=== PATIENT | female | born 1940 | race Two or more races ===

== ENCOUNTER 2017-01-23 14:50 | Emergency (ER) | payer MEDICARE, SELFPAY ==
[~2017-01-23] VITALS: Ht 160 cm; Wt 86.2 kg
[2017-01-23] MEDS ORDERED: PRAV40TA2 PO (15:02)
[2017-01-23] MEDS ORDERED: BENI40TA7 PO ×2 (15:02→17:03)
[2017-01-23] MEDS ORDERED: METF1000 PO (15:02)
[2017-01-23] MEDS ORDERED: HYDR12.55 PO (15:02)
[2017-01-23] MEDS ORDERED: KEFL500C7 PO (15:02)
[2017-01-23 16:03] LABS: BASO % 0.7 % (0.0-1.0); EOS # 0.1 K/mm3 (0.0-0.50); EOS % 1.6 % (0.0-3.0); LARGE UNSTAINED CELL # 0.1 K/mm3 (0.0-0.4); LARGE UNSTAINED CELL % 1.4 % (0.0-4.0); LYMPH # 1.7 K/mm3 (1.5-4.5); LYMPH % 28.4 % (24.0-44.0); MEAN CORPUSCULAR HEMOGLOBIN 29.8 pg (27.0-33.0); MEAN CORPUSCULAR HGB CONC 33.2 g/dl (32.0-36.5); MEAN CORPUSCULAR VOLUME 89.7 fl (80.0-96.0); MONO # 0.3 K/mm3 (0.0-0.8); MONO % 5.7 % (0.0-5.0); NEUTROPHILS # 3.6 K/mm3 (1.8-7.7); NEUTROPHILS % 62.1 % (36.0-66.0); PLATELET COUNT, AUTOMATED 167 k/mm3 (150-450); RED CELL DISTRIBUTION WIDTH 12.7 % (11.5-14.5); WHITE BLOOD COUNT 5.8 K/mm3 (4.0-10.0)
[2017-01-23 16:04] LABS: INR 0.93
[2017-01-23 16:16] LABS: ANION GAP 7 MEQ/L (8-16); BLOOD UREA NITROGEN 15 MG/DL (7-18); CALCIUM LEVEL 8.5 MG/DL (8.8-10.2); CARBON DIOXIDE LEVEL 27 MEQ/L (21-32); CHLORIDE LEVEL 107 MEQ/L (98-107); CREATININE FOR GFR 0.84 MG/DL (0.55-1.02); GLOMERULAR FILTRATION RATE > 60.0 (>39); GLUCOSE, FASTING 142 MG/DL (83-110); POTASSIUM SERUM 3.8 MEQ/L (3.5-5.1); SODIUM LEVEL 141 MEQ/L (136-145)
--- NOTE | 2017-01-23 16:27 | REP ---
Right lower extremity Duplex Doppler venous ultrasound: Real time compression and duplex Doppler interrogation of the right lower extremity deep venous system is performed. The right common femoral, superficial femoral and popliteal veins are fully compressible with transducer pressure and demonstrate normal spontaneous and phasic flow, without evidence of deep venous thrombosis. Impression: No evidence of deep venous thrombosis of the right lower extremity femoral popliteal venous system. Signed by Clyde Ceballos MD 01/23/2017 04:18 P
[2017-01-23] MEDS ORDERED: PRAV10TA PO (17:02)
[2017-01-23] MEDS ORDERED: METF-415 PO (17:03)
[2017-01-23 17:16] VITALS: BP 172/80
== END 2017-01-23 17:16 | disposition home or self-care (01) ==
LOC: M ED 15:46
DX: L03.115 Cellulitis of right lower limb (principal); E11.9 Type 2 diabetes mellitus without complications; I10 Essential (primary) hypertension; E78.00 Pure hypercholesterolemia, unspecified; Z79.899 Other long term (current) drug therapy; Z79.84 Long term (current) use of oral hypoglycemic drugs; Z79.2 Long term (current) use of antibiotics

== ENCOUNTER 2017-04-26 15:36 | Emergency (ER) | payer MEDICARE, OTHER, SELFPAY ==
[~2017-04-26] VITALS: Ht 160 cm; Wt 90.5 kg
[~2017-04-26 15:36] MED LIST changes: -CHLO125TA PO; -CORE12.5 PO; -LISI10TA4 PO
[2017-04-26 16:34] LABS: BASO % 0.6 % (0.0-1.0); EOS # 0.2 K/mm3 (0.0-0.50); LARGE UNSTAINED CELL # 0.2 K/mm3 (0.0-0.4); LARGE UNSTAINED CELL % 2.7 % (0.0-4.0); LYMPH # 2.7 K/mm3 (1.5-4.5); MEAN CORPUSCULAR HEMOGLOBIN 29.8 pg (27.0-33.0); MEAN CORPUSCULAR HGB CONC 33.8 g/dl (32.0-36.5); MEAN CORPUSCULAR VOLUME 88.3 fl (80.0-96.0); MONO # 0.4 K/mm3 (0.0-0.8); MONO % 6.6 % (0.0-5.0); NEUTROPHILS # 3.2 K/mm3 (1.8-7.7); NEUTROPHILS % 48.1 % (36.0-66.0); PLATELET COUNT, AUTOMATED 171 k/mm3 (150-450); RED CELL DISTRIBUTION WIDTH 12.9 % (11.5-14.5); WHITE BLOOD COUNT 6.5 K/mm3 (4.0-10.0)
[2017-04-26 16:47] LABS: ALBUMIN 3.9 GM/DL (3.2-5.2); ALBUMIN/GLOBULIN RATIO 0.95 (1.00-1.93); ALKALINE PHOSPHATASE 94 U/L (45-117); ALT/SGPT 24 U/L (12-78); ANION GAP 11 MEQ/L (8-16); AST/SGOT 18 U/L (15-37); BILIRUBIN,DIRECT 0.1 MG/DL (0.0-0.2); BILIRUBIN,TOTAL 0.5 MG/DL (0.2-1.0); BLOOD UREA NITROGEN 31 MG/DL (7-18); CALCIUM LEVEL 9.2 MG/DL (8.8-10.2); CARBON DIOXIDE LEVEL 27 MEQ/L (21-32); CHLORIDE LEVEL 103 MEQ/L (98-107); CREATININE FOR GFR 0.96 MG/DL (0.55-1.02); GLOMERULAR FILTRATION RATE > 60.0 (>39); GLUCOSE, FASTING 130 MG/DL (83-110); POTASSIUM SERUM 3.7 MEQ/L (3.5-5.1); SODIUM LEVEL 141 MEQ/L (136-145)
--- NOTE | 2017-04-26 16:47 | REP ---
Chest one-view HISTORY: Chest pain Comparison: None The lungs are clear. The cardiac silhouette is enlarged. The pulmonary vasculature is normal in appearance. Impression: Cardiomegaly. Signed by Rodriguez Valdez MD 04/26/2017 04:39 P
[2017-04-26] MEDS ORDERED: LISINOPRIL 10 MG TAB PO ONE (17:15)
[2017-04-26] MEDS ORDERED: CARVedilol 12.5 MG TAB PO ONE (17:15)
[2017-04-26] MEDS ORDERED: CHLORTHALIDONE 25 MG TAB PO ONE (17:15)
[2017-04-26] MEDS ORDERED: CHLORTHALIDONE 12.5MG PER 1/2 TABLET PO ONE (17:15)
[2017-04-26 17:24] VITALS: BP 187/89
[2017-04-26 20:12] VITALS: BP 146/69
[2017-04-26] MEDS ORDERED: CORE12.5 PO (20:28)
[2017-04-26] MEDS ORDERED: LISI10TA4 PO (20:28)
[2017-04-26] MEDS ORDERED: CHLO125TA PO (20:28)
--- NOTE | 2017-04-27 21:27 | ECGEPIP ---
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
--- NOTE | 2017-04-27 21:29 | ECGEPIP ---
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
== END 2017-04-26 21:30 | disposition home or self-care (01) ==
LOC: M ED 15:36
DX: I11.0 Hypertensive heart disease with heart failure (principal); E66.9 Obesity, unspecified; Z79.899 Other long term (current) drug therapy
CPT/HCPCS: 36415; 71010; 80048; 80053; 80061; 80076; 82550; 82553; 83036; 83880; 84439; 84443; 84484; 85025; 85027; 93005; 93041; 94760; 99285; G0463

== ENCOUNTER → 2017-04-26 | Outpatient (REF) | payer MEDICARE ==
[~2017-04-26] MED LIST: BENI40TA30 PO; CHLO125TA PO; CORE12.5 PO; HYDR12.55 PO; KEFL500C17 PO; LISI10TA4 PO; METF-415 PO; METF10004 PO; PRAV10TA4 PO; PRAV40TA2 PO
[2017-04-26 15:54] LABS: MEAN CORPUSCULAR HEMOGLOBIN 30.7 pg (27.0-33.0); MEAN CORPUSCULAR HGB CONC 34.5 g/dl (32.0-36.5); MEAN CORPUSCULAR VOLUME 88.8 fl (80.0-96.0); RED CELL DISTRIBUTION WIDTH 12.9 % (11.5-14.5); WHITE BLOOD COUNT 5.2 K/mm3 (4.0-10.0)
[2017-04-26 16:52] LABS: ALBUMIN 3.8 GM/DL (3.2-5.2); ALKALINE PHOSPHATASE 88 U/L (45-117); ALT/SGPT 24 U/L (12-78); ANION GAP 10 MEQ/L (8-16); AST/SGOT 17 U/L (15-37); BILIRUBIN,TOTAL 0.5 MG/DL (0.2-1.0); BLOOD UREA NITROGEN 31 MG/DL (7-18); CALCIUM LEVEL 9.1 MG/DL (8.8-10.2); CARBON DIOXIDE LEVEL 28 MEQ/L (21-32); CHLORIDE LEVEL 103 MEQ/L (98-107); CHOLESTEROL LEVEL 163 MG/DL (<200); FREE T4 1.04 NG/DL (0.76-1.46); GLOMERULAR FILTRATION RATE > 60.0 (>39); GLUCOSE, FASTING 118 MG/DL (83-110); SODIUM LEVEL 141 MEQ/L (136-145); TOTAL PROTEIN 7.6 GM/DL (6.4-8.2); TRIGLYCERIDES LEVEL 112 MG/DL (<150)
== END ==
LOC: M SFHCLERA 14:23
PROVIDERS: ATTEND Family Medicine
DX: I49.9 Cardiac arrhythmia, unspecified (principal); I89.0 Lymphedema, not elsewhere classified; R94.31 Abnormal electrocardiogram [ECG] [EKG]; E11.9 Type 2 diabetes mellitus without complications; E78.5 Hyperlipidemia, unspecified; I10 Essential (primary) hypertension; Z79.84 Long term (current) use of oral hypoglycemic drugs; Z79.899 Other long term (current) drug therapy
CPT/HCPCS: 80053; 80061; 83036; 84439; 84443; 84484; 85027; G0463

== ENCOUNTER → 2017-10-25 | Outpatient (REF) | payer MEDICARE, SELFPAY ==
[2017-10-25 18:29] LABS: ESTIMATED AVERAGE GLUCOSE 128 MG/DL (60-110); HEMOGLOBIN A1c 6.1 %
[2017-10-25 18:34] LABS: ANION GAP 6 MEQ/L (8-16); BLOOD UREA NITROGEN 30 MG/DL (7-18); CALCIUM LEVEL 9.4 MG/DL (8.8-10.2); CARBON DIOXIDE LEVEL 30 MEQ/L (21-32); CHLORIDE LEVEL 106 MEQ/L (98-107); CREATININE FOR GFR 0.96 MG/DL (0.55-1.30); GLOMERULAR FILTRATION RATE > 60.0 (>39); GLUCOSE, FASTING 133 MG/DL (70-100); NT-PRO BNP 1648 PG/ML (<450); POTASSIUM SERUM 4.3 MEQ/L (3.5-5.1); SODIUM LEVEL 142 MEQ/L (136-145)
[2017-10-25 18:55] LABS: CREATININE, URINE 57.8 MG/DL; MALB URINE SIEMENS 53.7 MG/L; MAU/CREAT RATIO 92.9 MCG/MG (0.0-30.0)
== END ==
LOC: M SFHCLERA 11:34
DX: E11.9 Type 2 diabetes mellitus without complications (principal); R60.0 Localized edema; I10 Essential (primary) hypertension
CPT/HCPCS: 83036

== ENCOUNTER → 2017-11-29 | Outpatient (REF) | payer MEDICARE | LOC: M SFHCLERA 10:29 | DX: I10 Essential (primary) hypertension (principal) ==

== ENCOUNTER → 2018-01-23 | Outpatient (CLI) | payer SELFPAY, MEDICARE | LOC: M RAD 11:57 | DX: I89.0 Lymphedema, not elsewhere classified (principal) | CPT/HCPCS: 93970 ==

== ENCOUNTER 2018-01-30 12:32 | Outpatient (RCR) | payer SELFPAY | END 2018-02-22 | LOC: M PT 12:32 | DX: Z51.89 Encounter for other specified aftercare (principal); I87.311 Chronic venous hypertension (idiopathic) with ulcer of right lower extremity; I89.0 Lymphedema, not elsewhere classified | CPT/HCPCS: 97163 ==

== ENCOUNTER → 2018-02-05 | Outpatient (REF) | payer MEDICARE, SELFPAY ==
[2018-02-05 18:03] LABS: ANION GAP 7 MEQ/L (8-16); BLOOD UREA NITROGEN 50 MG/DL (7-18); CALCIUM LEVEL 9.4 MG/DL (8.8-10.2); CARBON DIOXIDE LEVEL 29 MEQ/L (21-32); CHLORIDE LEVEL 108 MEQ/L (98-107); GLOMERULAR FILTRATION RATE 46.6 (>39); GLUCOSE, FASTING 111 MG/DL (70-100); POTASSIUM SERUM 4.3 MEQ/L (3.5-5.1); SODIUM LEVEL 144 MEQ/L (136-145)
== END ==
LOC: M SFHCLERA 12:38
DX: I10 Essential (primary) hypertension (principal)
CPT/HCPCS: 80048

== ENCOUNTER → 2018-05-11 | Outpatient (REF) | payer MEDICARE ==
[2018-05-11 20:37] LABS: ANION GAP 5 MEQ/L (8-16); BLOOD UREA NITROGEN 71 MG/DL (7-18); CALCIUM LEVEL 8.9 MG/DL (8.8-10.2); CARBON DIOXIDE LEVEL 34 MEQ/L (21-32); CHLORIDE LEVEL 103 MEQ/L (98-107); CREATININE FOR GFR 1.72 MG/DL (0.55-1.30); GLOMERULAR FILTRATION RATE 30.7 (>39); GLUCOSE, FASTING 109 MG/DL (70-100); POTASSIUM SERUM 4.2 MEQ/L (3.5-5.1); SODIUM LEVEL 142 MEQ/L (136-145)
[2018-05-11 20:44] LABS: ESTIMATED AVERAGE GLUCOSE 166 MG/DL (60-110); HEMOGLOBIN A1c 7.4 %
== END ==
LOC: M SFHCLERA 15:48
DX: E11.9 Type 2 diabetes mellitus without complications (principal); I50.22 Chronic systolic (congestive) heart failure
CPT/HCPCS: 83036

== ENCOUNTER → 2018-05-16 | Outpatient (CLI) | payer MEDICARE ==
[2018-05-16 20:27] LABS: ANION GAP 9 MEQ/L (8-16); BLOOD UREA NITROGEN 73 MG/DL (7-18); CALCIUM LEVEL 8.5 MG/DL (8.8-10.2); CARBON DIOXIDE LEVEL 30 MEQ/L (21-32); CHLORIDE LEVEL 105 MEQ/L (98-107); CREATININE FOR GFR 1.67 MG/DL (0.55-1.30); GLOMERULAR FILTRATION RATE 31.8 (>39); GLUCOSE, FASTING 119 MG/DL (70-100); POTASSIUM SERUM 4.4 MEQ/L (3.5-5.1); SODIUM LEVEL 144 MEQ/L (136-145)
[2018-05-16 20:41] LABS: BASO % 0.3 % (0.0-1.0); EOS # 0.2 10^3/uL (0.0-0.50); EOS % 2.8 % (0.0-3.0); HEMATOCRIT 34.2 % (36.0-47.0); HEMOGLOBIN 11.2 g/dl (12.0-15.5); IMMATURE GRANULOCYTE % 0.2 % (0-3.0); LYMPH # 2.2 10^3/uL (1.5-4.5); MEAN CORPUSCULAR HEMOGLOBIN 30.3 pg (27.0-33.0); MEAN CORPUSCULAR HGB CONC 32.7 g/dl (32.0-36.5); MEAN CORPUSCULAR VOLUME 92.4 fl (80.0-96.0); MONO # 0.6 10^3/uL (0.0-0.8); MONO % 10.2 % (0.0-5.0); NEUTROPHILS % 50.5 % (36.0-66.0); PLATELET COUNT, AUTOMATED 133 10^3/uL (150-450); RED CELL DISTRIBUTION WIDTH 12.8 % (11.5-14.5)
== END ==
LOC: M LRY 16:34
DX: I10 Essential (primary) hypertension (principal)
CPT/HCPCS: 80048

== ENCOUNTER 2018-07-09 12:30 | Outpatient (RCR) | payer MEDICARE | END 2018-07-25 | LOC: M CR 12:30 | DX: Z95.1 Presence of aortocoronary bypass graft (principal) | CPT/HCPCS: 93798 ==

== ENCOUNTER → 2018-07-11 | Outpatient (REF) | payer MEDICARE ==
[2018-07-11 17:47] LABS: ANION GAP 10 MEQ/L (8-16); BLOOD UREA NITROGEN 59 MG/DL (7-18); CALCIUM LEVEL 9.2 MG/DL (8.8-10.2); CARBON DIOXIDE LEVEL 27 MEQ/L (21-32); CHLORIDE LEVEL 107 MEQ/L (98-107); CREATININE FOR GFR 1.69 MG/DL (0.55-1.30); GLOMERULAR FILTRATION RATE 31.3 (>39); GLUCOSE, FASTING 135 MG/DL (70-100); POTASSIUM SERUM 4.4 MEQ/L (3.5-5.1); SODIUM LEVEL 144 MEQ/L (136-145)
[2018-07-11 18:30] LABS: ESTIMATED AVERAGE GLUCOSE 151 MG/DL (60-110); HEMOGLOBIN A1c 6.9 %
== END ==
LOC: M SFHCLERA 11:15
DX: E11.9 Type 2 diabetes mellitus without complications (principal); Z23 Encounter for immunization
CPT/HCPCS: 83036

== ENCOUNTER 2018-07-26 14:53 | Outpatient (RCR) | payer MEDICARE | END 2018-08-24 | LOC: M CR 14:53 | DX: Z95.1 Presence of aortocoronary bypass graft (principal) | CPT/HCPCS: 93798 ==

== ENCOUNTER → 2018-07-26 | Outpatient (REF) | payer MEDICARE ==
[2018-07-26 19:50] LABS: ANION GAP 10 MEQ/L (8-16); BLOOD UREA NITROGEN 53 MG/DL (7-18); CALCIUM LEVEL 8.6 MG/DL (8.8-10.2); CARBON DIOXIDE LEVEL 30 MEQ/L (21-32); CHLORIDE LEVEL 103 MEQ/L (98-107); CREATININE FOR GFR 1.97 MG/DL (0.55-1.30); GLOMERULAR FILTRATION RATE 26.2 (>39); GLUCOSE, FASTING 205 MG/DL (70-100); POTASSIUM SERUM 4.2 MEQ/L (3.5-5.1); SODIUM LEVEL 143 MEQ/L (136-145)
== END ==
LOC: M SFHCLERA 10:47
DX: I50.22 Chronic systolic (congestive) heart failure (principal)
CPT/HCPCS: 80048

== ENCOUNTER → 2018-08-02 | Outpatient (REF) | payer MEDICARE ==
[2018-08-02 17:25] LABS: ANION GAP 7 MEQ/L (8-16); BLOOD UREA NITROGEN 51 MG/DL (7-18); CALCIUM LEVEL 9.8 MG/DL (8.8-10.2); CARBON DIOXIDE LEVEL 32 MEQ/L (21-32); CHLORIDE LEVEL 103 MEQ/L (98-107); CREATININE FOR GFR 1.56 MG/DL (0.55-1.30); GLOMERULAR FILTRATION RATE 34.4 (>39); GLUCOSE, FASTING 174 MG/DL (70-100); POTASSIUM SERUM 4.2 MEQ/L (3.5-5.1); SODIUM LEVEL 142 MEQ/L (136-145)
== END ==
LOC: M SFHCLERA 10:12
DX: I50.22 Chronic systolic (congestive) heart failure (principal)
CPT/HCPCS: 80048

== ENCOUNTER → 2018-08-14 | Outpatient (CLI) | payer MEDICARE | LOC: M RAD 15:03 | DX: R07.2 Precordial pain (principal) | CPT/HCPCS: 71120 ==

== ENCOUNTER → 2018-10-22 | Outpatient (REF) | payer MEDICARE ==
[~2018-10-22] MED LIST changes: +CARV12.5 PO; +CHLO125TA PO; +COLA100C5 PO; +CORE12.5 PO; +ECOT325T5 PO; +ENTR1TAB PO; +FOLI1TAB11 PO; +FURO40TA2 PO; +HYDR-3713 PO; +HYDR25TAB PO; +K-TA1TAB PO; +LISI10TA4 PO; +PACE200T PO; +PRAV1TAB39 PO; +PREG50CA PO
[2018-10-22 20:58] LABS: BASO % 0.2 % (0.0-1.0); EOS # 0.2 10^3/uL (0.0-0.50); EOS % 3.8 % (0.0-3.0); HEMATOCRIT 35.8 % (36.0-47.0); HEMOGLOBIN 11.5 g/dl (12.0-15.5); LYMPH # 1.2 10^3/uL (1.5-4.5); MEAN CORPUSCULAR HEMOGLOBIN 28.5 pg (27.0-33.0); MEAN CORPUSCULAR HGB CONC 32.1 g/dl (32.0-36.5); MEAN CORPUSCULAR VOLUME 88.6 fl (80.0-96.0); MONO # 0.5 10^3/uL (0.0-0.8); MONO % 8.4 % (0.0-5.0); NEUTROPHILS # 3.8 10^3/uL (1.8-7.7); NEUTROPHILS % 66.1 % (36.0-66.0); PLATELET COUNT, AUTOMATED 208 10^3/uL (150-450); RED BLOOD COUNT 4.04 10^6/uL (4.00-5.40); WHITE BLOOD COUNT 5.8 10^3/uL (4.0-10.0)
[2018-10-22 21:09] LABS: ALBUMIN 3.6 GM/DL (3.2-5.2); BILIRUBIN,TOTAL 0.5 MG/DL (0.2-1.0); CALCIUM LEVEL 8.6 MG/DL (8.8-10.2); CHOLESTEROL RISK RATIO 3.888 (<5); CREATININE FOR GFR 1.61 MG/DL (0.55-1.30); GLOMERULAR FILTRATION RATE 33.1 (>39); POTASSIUM SERUM 3.7 MEQ/L (3.5-5.1); THYROID STIMULATING HORMONE 1.91 uIU/ML (0.358-3.740); TOTAL PROTEIN 7.5 GM/DL (6.4-8.2)
[2018-10-22 21:20] LABS: HEMOGLOBIN A1c 9.2 %
[2018-10-22 21:23] LABS: CREATININE, URINE 41.4 MG/DL; MALB URINE SIEMENS 11.7 MG/L; MAU/CREAT RATIO 28.2 MCG/MG (0.0-30.0)
== END ==
LOC: M SFHCLERA 15:43
PROVIDERS: ATTEND Family Medicine
DX: E11.9 Type 2 diabetes mellitus without complications (principal)
CPT/HCPCS: 80053; 80061; 82043; 83036; 84443; 85025; G0463

== ENCOUNTER → 2018-12-13 | Outpatient (REF) | payer MEDICARE ==
[2018-12-13 18:29] LABS: CALCIUM LEVEL 9.5 MG/DL (8.8-10.2); CREATININE FOR GFR 1.52 MG/DL (0.55-1.30); GLOMERULAR FILTRATION RATE 35.4 (>39); POTASSIUM SERUM 3.8 MEQ/L (3.5-5.1)
[2018-12-13 18:40] LABS: HEMOGLOBIN A1c 8.8 %
== END ==
LOC: M SFHCLERA 13:34
PROVIDERS: ATTEND Family Medicine
DX: E11.9 Type 2 diabetes mellitus without complications (principal)
CPT/HCPCS: 80048; 83036; G0463

== ENCOUNTER 2018-12-19 12:09 | Outpatient (RCR) | payer MEDICARE | END 2018-12-23 | LOC: M PT 12:09 | PROVIDERS: ATTEND Surgery | DX: L97.812 Non-pressure chronic ulcer of other part of right lower leg with fat layer exposed (principal); I89.0 Lymphedema, not elsewhere classified ==

== ENCOUNTER → 2018-12-24 | Outpatient (CLI) | payer MEDICARE ==
[2018-12-24 17:22] LABS: CALCIUM LEVEL 8.9 MG/DL (8.8-10.2); CREATININE FOR GFR 1.36 MG/DL (0.55-1.30); GLOMERULAR FILTRATION RATE 40.2 (>39); POTASSIUM SERUM 3.6 MEQ/L (3.5-5.1)
[2018-12-24 17:24] LABS: HEMATOCRIT 34.2 % (36.0-47.0); HEMOGLOBIN 10.9 g/dl (12.0-15.5); MEAN CORPUSCULAR HEMOGLOBIN 28.2 pg (27.0-33.0); MEAN CORPUSCULAR HGB CONC 31.9 g/dl (32.0-36.5); MEAN CORPUSCULAR VOLUME 88.4 fl (80.0-96.0); PLATELET COUNT, AUTOMATED 179 10^3/uL (150-450); RED BLOOD COUNT 3.87 10^6/uL (4.00-5.40); WHITE BLOOD COUNT 6.3 10^3/uL (4.0-10.0)
== END ==
LOC: M LRY 14:32
PROVIDERS: ATTEND Internal Medicine Cardiovascular Disease
DX: I50.42 Chronic combined systolic (congestive) and diastolic (congestive) heart failure (principal)

== ENCOUNTER 2019-01-21 12:39 | Outpatient (RCR) | payer MEDICARE | END 2019-01-22 | LOC: M PT 12:39 | PROVIDERS: ATTEND Surgery | DX: L97.812 Non-pressure chronic ulcer of other part of right lower leg with fat layer exposed (principal) ==

== ENCOUNTER 2019-02-15 08:26 | Outpatient (RCR) | payer MEDICARE | END 2019-02-22 | LOC: M PT 08:26 | PROVIDERS: ATTEND Surgery | DX: L97.812 Non-pressure chronic ulcer of other part of right lower leg with fat layer exposed (principal) ==

== ENCOUNTER → 2019-03-14 | Outpatient (REF) | payer MEDICARE ==
[2019-03-14 20:03] LABS: CALCIUM LEVEL 8.8 MG/DL (8.8-10.2); CHOLESTEROL RISK RATIO 3.215 (<5); CREATININE FOR GFR 1.76 MG/DL (0.55-1.30); GLOMERULAR FILTRATION RATE 29.9 (>39); POTASSIUM SERUM 3.5 MEQ/L (3.5-5.1)
[2019-03-14 20:51] LABS: HEMOGLOBIN A1c 7.6 %
== END ==
LOC: M SFHCLERA 15:38
PROVIDERS: ATTEND Family Medicine
DX: E78.5 Hyperlipidemia, unspecified (principal); E11.9 Type 2 diabetes mellitus without complications